=== PATIENT | male | born 1955 | race African-American/Black ===

== ENCOUNTER 2022-05-24 17:23 | Emergency (ER) | payer MEDICARE, MEDICAID ==
[~2022-05-24] VITALS: Ht 167.6 cm; Wt 68.0 kg
[2022-05-24 17:35] VITALS: BP 143/75
[2022-05-24 18:14] LABS: BASOPHILS # (AUTO) 0.1 K/uL (0.00-0.22); BASOPHILS % (AUTO) 0.7 % (0.0-2.0); EOSINOPHILS % (AUTO) 0.4 % (0.0-4.0); HEMATOCRIT 33.4 % (36-52); HEMOGLOBIN 10.9 g/dL (12.0-18.0); LYMPHOCYTES # (AUTO) 0.4 K/uL (2.0-11.5); LYMPHOCYTES % (AUTO) 4.5 % (20.5-51.1); MEAN CORPUSCULAR HEMOGLOBIN 27 pg (27-31); MEAN CORPUSCULAR HGB CONC 33 g/dL (33-37); MEAN CORPUSCULAR VOLUME 82.3 fL (80-94); MONOCYTES # (AUTO) 0.5 K/uL (0.8-1.0); MONOCYTES % (AUTO) 4.7 % (1.7-9.3); NEUTROPHILS % (AUTO) 89.7 % (42.2-75.2); PLATELET COUNT (AUTO) 576 K/uL (140-450); RED BLOOD CELL COUNT(AUTO) 4.06 MIL/uL (4.20-6.10); RED CELL DISTRIBUTION WIDTH 15.8 % (11.6-13.7)
[2022-05-24] MEDS: NACL 0.9% 1,000 ML IV ONE (18:18)
[2022-05-24] MEDS: ONDANSETRON 4 MG/2 ML VIAL IVP ONE (18:19)
[2022-05-24] MEDS: MORPHINE SULFATE 4 MG/ML SYR IVP ONE (18:23)
[2022-05-24 18:34] LABS: ALBUMIN 2.8 g/dL (3.4-5.0); ANION GAP 11.1 (8-16); CARBON DIOXIDE 31.2 mmol/L (21-32); POTASSIUM 4.3 mmol/L (3.5-5.1); TOTAL BILIRUBIN 0.4 mg/dL (0.0-1.0)
[2022-05-24 21:21] LABS: APPEARANCE,URINE CLEAR (CLEAR); COLOR,URINE YELLOW (YELLOW); UGLUCOSE NEGATIVE (NEGATIVE)
[2022-05-24 21:22] LABS: BILIRUBIN,URINE NEGATIVE (NEGATIVE); BLOOD, URINE NEGATIVE (NEGATIVE); NITRITE, URINE NEGATIVE (NEGATIVE)
[2022-05-24 21:23] LABS: LEUKOCYTE ESTERASE ,URINE NEGATIVE (NEGATIVE)
[2022-05-25 00:37] VITALS: BP 117/65
== END 2022-05-25 00:41 | disposition short-term general hospital (02) ==
LOC: MED 17:23
DX: K56.609 Unspecified intestinal obstruction, unspecified as to partial versus complete obstruction (principal); Z20.822 Contact with and (suspected) exposure to COVID-19; Z98.890 Other specified postprocedural states
CPT/HCPCS: 36415; 74177; 80053; 81003; 83605; 83690; 85025; 87426; 96361; 96374; 96375; 99285; J2270; J2405; Q9967

== ENCOUNTER 2023-05-02 18:53 | Inpatient (IN) | payer OTHER, MEDICAID ==
[~2023-05-02] VITALS: Ht 165.1 cm; Wt 143.7 kg
[2023-05-02 19:19] VITALS: BP 152/88; PULSE 110; RESP 16; TEMP 98.1; O2SAT 99
[2023-05-02] MEDS ORDERED: ONDANSETRON 4 MG/2 ML VIAL IVP ONE (20:20)
[2023-05-02] MEDS ORDERED: MORPHINE SULFATE 4 MG/ML SYR IVP ONE (20:20)
[2023-05-02] MEDS ORDERED: NACL 0.9% 1,000 ML IV SCH (20:20)
[2023-05-02 21:34] LABS: HEMATOCRIT 38.9 % (36-52); HEMOGLOBIN 12.8 g/dL (12.0-18.0); MEAN CORPUSCULAR HEMOGLOBIN 28 pg (27-31); MEAN CORPUSCULAR HGB CONC 33 g/dL (33-37); MEAN CORPUSCULAR VOLUME 84.2 fL (80-94); PLATELET COUNT (AUTO) 269 K/uL (140-450); RED BLOOD CELL COUNT(AUTO) 4.62 MIL/uL (4.20-6.10); RED CELL DISTRIBUTION WIDTH 15.1 % (11.6-13.7); WHITE BLOOD COUNT (AUTO) 18.4 K/uL (4.8-10.8)
[2023-05-02 22:06] LABS: ALBUMIN 3.9 g/dL (3.4-5.0); ANION GAP 12.5 (8-16); CALCIUM 9.1 mg/dL (8.5-10.1); CARBON DIOXIDE 29.4 mmol/L (21-32); CREATININE 0.9 mg/dL (0.6-1.3); POTASSIUM 3.9 mmol/L (3.5-5.1); TOTAL BILIRUBIN 0.6 mg/dL (0.0-1.0)
[2023-05-02 22:17] LABS: EOSINOPHILS % (MANUAL) 2 % (0-4); LYMPHOCYTES % (MANUAL) 7 % (20-46); MONOCYTES % (MANUAL) 4 % (5-12); PLATELET ESTIMATE ADEQUATE
[2023-05-03 03:57] LABS: APPEARANCE,URINE CLEAR (CLEAR); BILIRUBIN,URINE NEGATIVE (NEGATIVE); BLOOD, URINE 1+ (NEGATIVE); COLOR,URINE YELLOW (YELLOW); LEUKOCYTE ESTERASE ,URINE NEGATIVE (NEGATIVE); NITRITE, URINE NEGATIVE (NEGATIVE); PH,URINE 6.5 (5.0-9.0); PROTEIN,URINE NEGATIVE (NEGATIVE); UGLUCOSE NEGATIVE (NEGATIVE)
[2023-05-03] MEDS ORDERED: PIPERACILLIN/TAZOBACTAM 3.375 GM in DEXTROSE 5% 50 ML IV ONE (04:30)
[2023-05-03] MEDS ORDERED: ONDANSETRON 4 MG/2 ML VIAL IVP ONE (04:30)
[2023-05-03] MEDS ORDERED: MORPHINE SULFATE 4 MG/ML SYR IVP ONE (04:30)
[2023-05-03] MEDS ORDERED: PIPERACILLIN/TAZOBACTAM 3.375 GM VIAL IV ONE ×3 (04:51→22:00)
[2023-05-03] MEDS ORDERED: POTASSIUM CHLORIDE 10 MEQ TABER PO PRN (05:50)
[2023-05-03] MEDS ORDERED: ZOLPIDEM 5 MG TAB PO PRN (05:50)
[2023-05-03] MEDS ORDERED: HYDROcodone/APAP 7.5/325 MG 1 TAB PO PRN (05:50)
[2023-05-03] MEDS ORDERED: ONDANSETRON 4 MG/2 ML VIAL IM/IVP PRN (05:50)
[2023-05-03] MEDS ORDERED: NACL 0.9% 1,000 ML IV SCH (05:50)
[2023-05-03] MEDS ORDERED: DOCUSATE SODIUM 100 MG GELCAP PO PRN (05:50)
[2023-05-03] MEDS ORDERED: guaiFENesin DM 200/20 MG-10 ML 10 ML UDC PO PRN (05:50)
[2023-05-03] MEDS ORDERED: ACETAMINOPHEN 325 MG TAB PO PRN (05:50)
[2023-05-03 06:00] LABS: LACTIC ACID 1.8 mmol/L (0.4-2.0)
[2023-05-03 06:53] LABS: BASOPHILS % (AUTO) 0.2 % (0.0-2.0); EOSINOPHILS % (AUTO) 0.2 % (0.0-4.0); HEMATOCRIT 38.4 % (36-52); HEMOGLOBIN 12.5 g/dL (12.0-18.0); LYMPHOCYTES # (AUTO) 1.1 K/uL (2.0-11.5); LYMPHOCYTES % (AUTO) 8.4 % (20.5-51.1); MEAN CORPUSCULAR HEMOGLOBIN 28 pg (27-31); MEAN CORPUSCULAR HGB CONC 33 g/dL (33-37); MEAN CORPUSCULAR VOLUME 84.3 fL (80-94); MONOCYTES % (AUTO) 7.4 % (1.7-9.3); NEUTROPHILS # (AUTO) 11.4 K/uL (1.8-7.7); NEUTROPHILS % (AUTO) 83.8 % (42.2-75.2); PLATELET COUNT (AUTO) 248 K/uL (140-450); RED BLOOD CELL COUNT(AUTO) 4.55 MIL/uL (4.20-6.10); RED CELL DISTRIBUTION WIDTH 14.9 % (11.6-13.7); WHITE BLOOD COUNT (AUTO) 13.5 K/uL (4.8-10.8)
[2023-05-03 07:38] LABS: ALBUMIN 3.3 g/dL (3.4-5.0); ANION GAP 12.7 (8-16); CALCIUM 8.8 mg/dL (8.5-10.1); CARBON DIOXIDE 27.4 mmol/L (21-32); CREATININE 0.9 mg/dL (0.6-1.3); POTASSIUM 4.1 mmol/L (3.5-5.1); TOTAL BILIRUBIN 0.5 mg/dL (0.0-1.0)
[2023-05-03] MEDS ORDERED: MORPHINE SULFATE 2 MG/ML SYR IVP PRN (08:40)
[2023-05-03] MEDS: METOPROLOL 25 MG TAB PO SCH (09:11)
[2023-05-03] MEDS: PANTOPRAZOLE 40 MG TABEC PO SCH (09:11)
[2023-05-03] MEDS: NACL 0.9% 1,000 ML IV SCH ×2 (09:18→22:51)
[2023-05-03] MEDS: PIPERACILLIN/TAZOBACTAM 3.375 GM in DEXTROSE 5% 50 ML IV SCH ×2 (13:19→22:51)
[2023-05-03 20:00] VITALS: BP 154/43; PULSE 79; RESP 16; TEMP 97.5; O2SAT 97
[2023-05-03 20:17] VITALS: PULSE 79; RESP 16; RESP 17; O2SAT 97
[2023-05-03] MEDS: DOCUSATE SODIUM 100 MG GELCAP PO SCH (22:13)
[2023-05-03] MEDS: DIVALPROEX 250 MG TABEC PO SCH (22:14)
[2023-05-04] VITALS: BP 160/54; PULSE 79; PULSE 84; RESP 17; TEMP 98; O2SAT 97
[2023-05-04 04:00] VITALS: PULSE 79
[2023-05-04] MEDS ORDERED: PIPERACILLIN/TAZOBACTAM 3.375 GM VIAL IV ONE (04:07)
[2023-05-04] MEDS: PIPERACILLIN/TAZOBACTAM 3.375 GM in DEXTROSE 5% 50 ML IV SCH ×2 (04:42→12:30)
[2023-05-04 07:18] LABS: BASOPHILS # (AUTO) 0.1 K/uL (0.00-0.22); BASOPHILS % (AUTO) 0.8 % (0.0-2.0); EOSINOPHILS # (AUTO) 0.1 K/uL (0-0.4); EOSINOPHILS % (AUTO) 1.6 % (0.0-4.0); HEMOGLOBIN 12.1 g/dL (12.0-18.0); LYMPHOCYTES # (AUTO) 1.3 K/uL (2.0-11.5); LYMPHOCYTES % (AUTO) 16.5 % (20.5-51.1); MEAN CORPUSCULAR HEMOGLOBIN 28 pg (27-31); MEAN CORPUSCULAR HGB CONC 34 g/dL (33-37); MEAN CORPUSCULAR VOLUME 83.7 fL (80-94); MONOCYTES # (AUTO) 0.6 K/uL (0.8-1.0); MONOCYTES % (AUTO) 6.9 % (1.7-9.3); NEUTROPHILS % (AUTO) 74.2 % (42.2-75.2); PLATELET COUNT (AUTO) 247 K/uL (140-450); RED BLOOD CELL COUNT(AUTO) 4.31 MIL/uL (4.20-6.10); RED CELL DISTRIBUTION WIDTH 14.9 % (11.6-13.7); WHITE BLOOD COUNT (AUTO) 8.1 K/uL (4.8-10.8)
[2023-05-04 07:25] LABS: ANION GAP 10.8 (8-16); CALCIUM 8.8 mg/dL (8.5-10.1); POTASSIUM 3.8 mmol/L (3.5-5.1)
[2023-05-04 08:00] VITALS: BP 130/68; PULSE 68; RESP 16; TEMP 98.5; O2SAT 97; O2SAT 98
[2023-05-04] MEDS: NACL 0.9% 1,000 ML IV SCH (08:00)
[2023-05-04] MEDS: METOPROLOL 25 MG TAB PO SCH (09:42)
[2023-05-04] MEDS: DOCUSATE SODIUM 100 MG GELCAP PO SCH (09:43)
[2023-05-04] MEDS: DIVALPROEX 250 MG TABEC PO SCH (09:43)
[2023-05-04] MEDS: PANTOPRAZOLE 40 MG TABEC PO SCH (09:43)
[2023-05-04] MEDS ORDERED: amLODIPine 5 MG TAB PO SCH (10:00)
[2023-05-04] MEDS ORDERED: FAMO20TA13 PO (10:01)
[2023-05-04] MEDS ORDERED: DIVA-56 PO (10:01)
[2023-05-04] MEDS ORDERED: AMLO-3 PO (10:01)
[2023-05-04] MEDS ORDERED: OXYB-118 PO (10:01)
[2023-05-04] MEDS ORDERED: METO-744 PO (10:02)
[2023-05-04] MEDS ORDERED: TRAZ-466 PO (10:02)
[2023-05-04] MEDS ORDERED: LEVO750T75 PO (10:04)
[2023-05-04] MEDS ORDERED: DOCU-299 PO (10:04)
== END 2023-05-04 16:59 | disposition home or self-care (01) | DRG 392 ==
LOC: MED 18:53 → MMU 05-03 06:13 → MTU 05-03 18:58
PROVIDERS: ADMIT Student in an Organized Health Care Education/Training Program; ATTEND Student in an Organized Health Care Education/Training Program
DX: K52.9 Noninfective gastroenteritis and colitis, unspecified (principal); K82.9 Disease of gallbladder, unspecified; K59.00 Constipation, unspecified; Z85.038 Personal history of other malignant neoplasm of large intestine; Z85.028 Personal history of other malignant neoplasm of stomach; Z86.11 Personal history of tuberculosis; D72.829 Elevated white blood cell count, unspecified
CPT/HCPCS: 36415; 76700; 80048; 80053; 81003; 83605; 83690; 85025; 87040; 87081; J1644; J2270; J2405; J2543; J7060; Q0092